=== PATIENT | female | born 1945 | race Caucasian/White ===

== ENCOUNTER 2022-01-28 15:36 | Outpatient (CLI) | payer MEDICARE, OTHER, SELFPAY ==
--- NOTE | 2022-01-28 15:47 | MM_ITS ---
WS: [id number] BILATERAL 3D TOMOSYNTHESIS DIGITAL SCREENING MAMMOGRAPHY WITH CAD CLINICAL INFORMATION: SCREEN HISTORY: Screening mammogram. No current complaints. COMPARISON: October 15, 2018 TECHNIQUE: Bilateral CC and MLO views. FINDINGS: The breasts are composed of heterogeneous fibroglandular density tissue, which can limit the detectio n of small underlying mass lesions. Vascular calcification. Punctate and lucent centered calcificatio ns. No suspicious mass, asymmetry, calcifications, or architectural distortion. No evidence of malign ying. MM/[place] [id number] IMPRESSION: BI-RADS: 2-Benign FOLLOW UP: 1 Year Follow-up Recommend return to annual screening mammography.
== END 2022-01-28 15:37 | disposition home or self-care (01) ==
LOC: RAD 15:44
PROVIDERS: PCP Electrodiagnostic Medicine; Visit Provider Electrodiagnostic Medicine
DX: Z12.31 Encounter for screening mammogram for malignant neoplasm of breast (principal)
CPT/HCPCS: 77063; 77067

== ENCOUNTER → 2022-02-20 00:01 | Outpatient (BNVA) | payer MEDICARE, OTHER, SELFPAY | PROVIDERS: PCP Electrodiagnostic Medicine; Visit Provider Clinical Nurse Specialist Adult Health | DX: I10 Essential (primary) hypertension (principal) | CPT/HCPCS: 80053; 80061; 85025 ==

== ENCOUNTER 2022-08-28 17:58 | Emergency (ER) | payer MEDICARE, OTHER, SELFPAY ==
[2022-08-28 18:03] VITALS: BP 145/65; PULSE 76; RESP 18; TEMP 37.2; O2SAT 95; BMI 25.7
--- NOTE | 2022-08-28 18:07 | ECG_ITS ---
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 Measurements Intervals [place] Rate: 81 P: 71 [place]: 224 QRS: 28 QRSD: 84 T: 61 QT: 398 QTc: 463 Interpretive Statements SINUS RHYTHM WITH SINUS ARRHYTHMIA WITH FIRST DEGREE AV BLOCK POSSIBLE LEFT ATRIAL ENLARGEMENT [-0.1mV P-WAVE IN V1/V2] NONSPECIFIC ST & T-WAVE ABNORMALITY No previous ECG available for comparison Electronically Signed On 08-29-2022 10:02:50 CUSTOM LEATH[employer]ODU[employer] MAKER by Shalini Ryder M.D. [id number]
--- NOTE | 2022-08-28 18:28 | XRR_ITS ---
PROCEDURE INFORMATION: Exam: XR Chest Exam date and time: 08/28/2022 6:46 PM Age: 77 years old Clinical indication: Other: Syncope TECHNIQUE: Imaging protocol: Radiologic exam of the chest. Views: 1 view. COMPARISON: No relevant prior studies available. FINDINGS: Lungs: Unremarkable. No consolidation. Pleural spaces: Unremarkable. No pleural effusion. No pneumothorax. Heart/Mediastinum: Unremarkable. No cardiomegaly. Bones/joints: Unremarkable. XR/XR chest 1V portable [id number] IMPRESSION: No acute findings.
--- NOTE | 2022-08-28 18:28 | CTR_ITS ---
PROCEDURE INFORMATION: Exam: CT Head Without Contrast Exam date and time: 08/28/2022 6:51 PM Age: 77 years old Clinical indication: Other: Occipital headache+syncope TECHNIQUE: Imaging protocol: Computed tomography of the head without contrast. Radiation optimization: All CT scans at this facility use at least one of these dose optimization techniques: automated exposure control; mA and/or kV adjustment per patient size (includes targeted exams where dose is matched to clinical indication); or iterative reconstruction. COMPARISON: No relevant prior studies available. RADIATION DOSE METRICS: Total DLP (mGy-cm): 1026.53 FINDINGS: Brain: No hemorrhage. No edema. Mild diffuse cerebral atrophy and sequela of chronic small vessel ischemic disease. No mass effect. Cerebral ventricles: No ventriculomegaly. Paranasal sinuses: Visualized sinuses are unremarkable. No fluid levels. Mastoid air cells: Visualized mastoid air cells are well aerated. Bones/joints: Unremarkable. No acute fracture. Soft tissues: Unremarkable. CT/CT head wo con* [id number] IMPRESSION: No acute intracranial abnormality.
--- NOTE | 2022-08-28 18:32 | W.ED.SYNCOPE ---
HPI - Syncope General: Chief Complaint: Syncope Stated Complaint: SYNCOPE Time Seen by Provider: 08/28/22 18:10 Source: patient and family Mode of arrival: EMS Limitations: no limitations History of Present Illness: You thought that might be related to blood pressure and took a hydralazine which she carries with her for blood pressure elevations. She states that shortly after taking that medication she apparently had a syncopal episode that was witnessed by bystanders. They state that she was had a loss of conscious for unknown period of time but eventually regained to her normal state of health. She denied any known or associated focal weakness or numbness or difficulty with speech. She denied headache. She denied any preceding activities to her neck pain to include heavy lifting twisting turning bending etc. She does not have a history of neck pain headaches etc. She does have a history of labile hypertension and therefore have it has the prescription for hydralazine. She now states that she feels back to her normal state of health. She states she ate and drank normally and otherwise had a normal day for her. She is non-smoker and does not use alcohol. She states she has occasional episodes of unsteadiness with rapid twisting and turning and movements that she is had for over 5 years has been evaluated by neurology and thought to be a peripheral cause per her history. She also states that she has peripheral neuropathy of uncertain etiology. She does not use alcohol in the as noted and she does not have a history of diabetes. MD complaint: loss of consciousness Associated symptoms: Deny abdominal pain, chest pain, fever(s), headache(s), lightheadedness, nausea or vertigo Review of Systems Const: Denies: fever(s) or chills Eyes: Denies: change in vision Card: Reports: syncope; Denies: chest pain, palpitations, irregular heart rhythm or lightheadedness Resp: Denies: dyspnea, productive cough or non-productive cough GI: Denies: abdominal pain, nausea or vomiting Musc: Reports: neck pain; Denies: back pain, extremity pain or extremity swelling Skin/Breast: Denies: rash Neuro: Denies: headache(s), weakness in extremities, dizziness, vertigo, confusion, Slurred speech present or seizure-like activity Psych: Denies: anxiety PFS ED PFSH: Medical History Hypercholesterolemia Hypertension Varicose veins of bilateral lower extremities with other complications Surgical History No history of previous surgery Family History Denies family history of Diabetes CAD (coronary artery disease) Dementia Chronic kidney disease (CKD) Cancer Stroke Social History Smoking and tobacco status: never smoked Alcohol intake: never Lives independently: Yes Household members: none Number of children: 3 Number of grandchildren: 8 Physical Exam Narrative: EXAM NARRATIVE: Speaks inAt coming comfortable, cooperative; speaks in normal voice and goal-directed sentences. Const: COMMON NORMALS: no acute distress, average body habitus and patient oriented x3 GENERAL APPEARANCE: cooperative and comfortable ORIENTATION/CONSCIOUSNESS: Yes awake HENMT: COMMON NORMALS: normocephalic, Normal nasal mucous membranes and turbinates present and moist oral mucous membranes HEAD & SCALP: normocephalic FACE & SINUS: normal facial exam and face symmetric NOSE: Normal nasal mucous membranes and turbinates present Eye: COMMON NORMALS: Equal, round and reactive pupils present, EOMs intact bilaterally and conjunctivae normal CONJUNCTIVA: Yes conjunctivae normal PUPIL: Yes Equal, round and reactive pupils present Neck/C-Spine: COMMON NORMALS: full ROM, no lymphadenopathy, supple, no JVD and No carotid bruits Chest: COMMONS NORMALS: normal inspection of the chest Resp: COMMON NORMALS: normal respiratory effort, No retractions, No use of accessory muscles and clear to auscultation bilaterally EFFORT & INSPECTION: Yes able to speak in complete sentences AUSCULTATION: clear to auscultation bilaterally Cardio: COMMON NORMALS: no JVD, regular rate, regular rhythm, No murmurs present (Cardio) and Peripheral pulses 2+ throughout RATE: regular rate RHYTHM: regular rhythm PERIPHERAL PULSES: Peripheral pulses 2+ throughout : COMMON NORMALS: Yes no CVA tenderness BLADDER/KIDNEY EXAM: Yes no CVA tenderness Back/Pelvis: COMMON NORMALS: no CVA tenderness, thoracic and lumbar spine normal to inspection, no thoracic nor lumbar tenderness, thoraco-lumbar ROM normal and straight leg raise negative bilaterally Extremity: COMMON NORMALS: normal to inspection, full ROM, no clubbing, cyanosis or edema, no calf tenderness and no pedal edema Neuro: COMMON NORMALS: patient oriented x3 CRANIAL NERVES: Yes CN normal except as noted COORDINATION/BALANCE: qpradm-cz-maeg test normal (She has a little bit of difficulty with guudoq-dh-yjeh with the right upper) and rdkc-pl-nhdp test normal SPEECH: speech normal MOTOR EXAM: 5/5 motor strength present throughout and Pronator motor function not present COORDINATION: zpypqi-ma-mocp test normal (She has a little bit of difficulty with klosfx-tt-ltgt with the right upper) and syxl-vi-jpjt test normal Psych: COMMON NORMALS: mental status grossly normal Skin: COMMON NORMALS: no rashes or lesions noted and turgor normal GENERAL SKIN EXAM: no rashes or lesions noted and turgor normal Course Reevaluation(s): Reevaluation #1: Patient was reexamined. She states she feels fine. She is eaten a small snack. She says she still has a little bit of discomfort in right posterior neck but otherwise no pain or discomfort. Repeat neurologic examination revealed no issues with right upper extremity with coordination wqwcin-um-klch etc. No other focal findings at this time although she does have to use a bit more than expected effort to elevate her left leg against gravity. We will proceed with a CTA of the head and neck to ensure that there is no occult vascular abnormality. Her noncontrast CT of her head is negative for any evidence of intracranial hemorrhage. Time: 20:03 Reevaluation #2: Results of CTA head and neck were reviewed with the patient and family. Consultation was engaged with neurosurgery at [facility]. Patient remains clinically stable without any new or focal findings. Blood pressures in the normotensive range and no other focal neurologic symptoms or findings. Discussed follow-up with vascular surgery at [facility] as well as the need for avoiding use of hydralazine given his unpredictable nature. Recommend calling her primary care doctor tomorrow to arrange a appointment to review her regimen and determine more optimal therapy for maintaining her in a normotensive state. Time: 22:19 Consultations: Consultation #1: Discussed with -neurosurgeon at [facility]. We reviewed her current presentation as well as the CTA results. Based upon information presented to him he did not feel that any acute intervention for this size of an aneurysm at this stage in life was indicated given there was no active bleeding etc. He did recommend periodic follow-up with vascular and made a referral to one of his vascular surgeons at [facility]. Time: 22:20 Vital Signs: Vital signs: Vital Signs Temperature 98.9 F 08/28/22 18:03 Pulse Rate 76 08/28/22 18:03 Respiratory Rate 18 08/28/22 18:03 Blood Pressure 155/77 08/28/22 18:37 Pulse Oximetry 95 08/28/22 18:37 Oxygen Delivery Me thod 08/28/22 18:37 MDM - Syncope Medical Decision Making This patient made her way by EMS to the emergency department because of an episode of neck pain while at rest followed by concerns about potential blood pressure elevation for which she took hydralazine. Shortly after she took hydralazine she had a syncopal episode without any significant injury. Apparently had a history of labile hypertension and was prescribed hydralazine to use on a as needed basis in the past. Her initial examination was nonfocal however because of some of her associated symptoms prior to her syncopal episode a noncontrasted CT was obtained to ensure that there is no evidence of acute intracranial hemorrhage etc. This was negative and given her short duration of presentation after symptoms was very predictive of low likelihood of occult intracranial hemorrhage. Additional studies were then obtained to ensure that no there was no evidence of vascular issues at play because of her neck pain which preceded her presentation. A CT was obtained which showed a unruptured 4 mm aneurysm. Consultation was undertaken with neurosurgery who recommended periodic follow-up and that no acute intervention was necessary. She repaint remained in a stable condition while in the emergency department with no fluctuations in blood pressure and no focal findings on repeat examinations. Still unclear as to the etiology of her neck pain but certainly does not suggest any ongoing emergency medical condition at this time. We discussed the importance of maintaining normotensive state and that she needs to get with her primary care doctor regarding her review of regimen and eliminating hydralazine is probably a episodic drug. This was all discussed with patient as well as in the presence of family. She voiced understanding and acknowledged our discussion. She was appreciative of care and stable for discharge. Lab Data I reviewed the patient's lab results. 08/28/22 17:50 08/28/22 17:50 Radiology Impressions Chest X-Ray 08/28/22 18:28 IMPRESSION: No acute findings. Head CT 08/28/22 18:28 IMPRESSION: No acute intracranial abnormality. Head/Neck CTA 08/28/22 20:02 IMPRESSION: 1. No large vessel stenosis or occlusion. 2. There is a 4 mm aneurysm which appears to originate off of a distal arterial branch of the right anterior inferior cerebellar artery located adjacent to the cerebellar vermis. IMPRESSION: No stenosis or occlusion. REFERENCES: NASCET CRITERIA. The degree of stenosis in the cervical segment of the internal carotid artery is based on NASCET criteria. Normal is no stenosis. Mild is less than 50% stenosis. Moderate is 50-69% stenosis. Severe is 70% to 99% stenosis. Total occlusion is no detectable patent lumen. Laboratory Results WBC 8.2 10^3/uL (4.0-10.0) 08/28/22 17:50 RBC 4.61 10^6/uL (4.1-5.3) 08/28/22 17:50 Hgb 14.0 g/dL (11.5-15.3) 08/28/22 17:50 Hct 42.3 % (37.0-47.0) 08/28/22 17:50 MCV 91.8 fl (81-99) 08/28/22 17:50 MCH 30.4 pg (28.0-34.0) 08/28/22 17:50 MCHC 33.1 g/dL (30.0-36.0) 08/28/22 17:50 RDW 12.9 % (12.1-15.1) 08/28/22 17:50 Plt Count 303 10^3/cmm (130-400) 08/28/22 17:50 MPV 10.2 fL (7.4-10.4) 08/28/22 17:50 Neut % (Auto) 55.2 % 08/28/22 17:50 Lymph % (Auto) 31.8 % 08/28/22 17:50 [place] % (Auto) 10.4 % 08/28/22 17:50 Eos % (Auto) 1.7 % 08/28/22 17:50 Baso % (Auto) 0.7 % 08/28/22 17:50 Neut # (Auto) 4.50 10^3/uL (1.8-7.7) 08/28/22 17:50 Lymph # (Auto) 2.6 10^3/uL (0.8-4.8) 08/28/22 17:50 [place] # (Auto) 0.9 10^3/uL (0.2-0.9) 08/28/22 17:50 Eos # (Auto) 0.1 10^3/uL (0.0-0.8) 08/28/22 17:50 Baso # (Auto) 0.1 10^3/uL (0.0-0.1) 08/28/22 17:50 Nucleated RBC % (auto) 0 % 08/28/22 17:50 Nucleated RBCs # 0.0 /100WBC 08/28/22 17:50 Sodium 135 mmol/L (136-145) L 08/28/22 17:50 Potassium 3.6 mmol/L (3.5-5.1) 08/28/22 17:50 Chloride 95 mmol/L (98-107) L 08/28/22 17:50 Carbon Dioxide 28 mmol/L (22-29) 08/28/22 17:50 Anion Gap 15.6 (5-19) 08/28/22 17:50 BUN 16 mg/dL (8-23) 08/28/22 17:50 Creatinine 0.9 mg/dL (0.5-0.9) 08/28/22 17:50 GFR Calculation Not Reportable 08/28/22 17:50 Glucose 130 mg/dL (65-115) H 08/28/22 17:50 Calculated Osmolality 283 mOsm/kg (285-295) L 08/28/22 17:50 Calcium 9.8 mg/dL (8.5-10.5) 08/28/22 17:50 Total Bilirubin 0.3 mg/dL (0.15-1.2) 08/28/22 17:50 AST 24 U/L (0-32) 08/28/22 17:50 ALT 19 U/L (0-33) 08/28/22 17:50 Alkaline Phosphatase 58 U/L (35-105) 08/28/22 17:50 Troponin T Baseline 10 ng/L (0-10) 08/28/22 17:50 Troponin T 120 Minute 7.89 ng/L (0-10) 08/28/22 19:53 Total Protein 7.6 g/dL (6.6-8.7) 08/28/22 17:50 Albumin 4.5 g/dL (3.5-5.2) 08/28/22 17:50 Globulin 3.1 g/dL (1.3-4.6) 08/28/22 17:50 EKG Data EKG 1: I personally reviewed and interpreted this EKG as follows: Interpretation: Contemporaneous review of resting EKG reveals a ventricular rate of 81 bpm. Prolonged WV interval suggestive of first-degree AV block. QRS duration is normal. Corrected QT intervals normal. Normal axis. No acute ST-T wave changes noted. Discharge Plan Discharge Patient Disposition: Home Clinical Impression: Labile hypertension, Intracranial aneurysm, Syncope Condition: Stable Prescriptions: Held hydralazine 50 mg tablet 50 mg PO ONCE Hold Instructions: Resume on 09/10/22. pending review by pcp No Action hydrochlorothiazide 25 mg tablet 25 mg PO DAILY metoprolol succinate 100 mg capsule,sprinkle,ER 24hr 100 mg PO DAILY atorvastatin 20 mg tablet PO montelukast 10 mg tablet PO Discharge Orders: Discharge ED (Routine); Ordered 08/28/22 Ordered By: Amauri Antonio Referrals: Megan Pina MD [Primary Care Provider] - 1 week Discharge Diet: Low Salt Discharge Activity: Increase activity as tolerated Patient Instructions: Opioid Safety, Pain Management Activity Restrictions/Additional Instructions: Case management will be speaking with Dr. Fonseca the vascular surgeon at [facility] to arrange follow-up. Call your primary care doctor tomorrow to arrange follow-up and review of your blood pressure control. If you develop any new, persistent or worsening symptoms or recurrence of the same symptoms you experienced today return to this or the nearest emergency department immediately. Coding Level of Care Code ED Mica Laminating Machine Feeder for Chg Fwd Exam Comprehensive
[2022-08-28 18:37] VITALS: BP 155/77; O2SAT 95
[2022-08-28] MEDS: sodium chloride 0.9% 500 ML IV (18:40)
[2022-08-28 18:56] LABS: Basophils # 0.1 10^3/uL (0.0-0.1); Basophils % 0.7 %; Eosinophils # 0.1 10^3/uL (0.0-0.8); Eosinophils % 1.7 %; Hematocrit 42.3 % (37.0-47.0); Lymphocytes # 2.6 10^3/uL (0.8-4.8); Lymphocytes % 31.8 %; Mean Corpuscular HGB Conc 33.1 g/dL (30.0-36.0); Mean Corpuscular Hemoglobin 30.4 pg (28.0-34.0); Mean Corpuscular Volume 91.8 fl (81-99); Mean Platelet Volume 10.2 fL (7.4-10.4); Monocytes # 0.9 10^3/uL (0.2-0.9); Monocytes % 10.4 %; Neutrophils % 55.2 %; Nucleated Red Blood Cells % 0 %; Platelet Count 303 10^3/cmm (130-400); Red Blood Count 4.61 10^6/uL (4.1-5.3); Red Cell Distribution Width 12.9 % (12.1-15.1); White Blood Count 8.2 10^3/uL (4.0-10.0)
[2022-08-28 19:20] LABS: Troponin(5th) Baseline 10 ng/L (0-10)
[2022-08-28 19:23] LABS: Alanine Aminotransferase 19 U/L (0-33); Albumin Level 4.5 g/dL (3.5-5.2); Alkaline Phosphatase 58 U/L (35-105); Anion Gap 15.6 (5-19); Aspartate Amino Transferase 24 U/L (0-32); Blood Urea Nitrogen 16 mg/dL (8-23); Calcium 9.8 mg/dL (8.5-10.5); Carbon Dioxide 28 mmol/L (22-29); Chloride 95 mmol/L (98-107); Globulin 3.1 g/dL (1.3-4.6); Glucose 130 mg/dL (65-115); Osmolality Calculated 283 mOsm/kg (285-295); Potassium 3.6 mmol/L (3.5-5.1); Sodium 135 mmol/L (136-145); Total Bilirubin 0.3 mg/dL (0.15-1.2); Total Protein 7.6 g/dL (6.6-8.7)
--- NOTE | 2022-08-28 20:02 | CTR_ITS ---
PROCEDURE INFORMATION: Exam: CTA Head With Contrast, Arteriography Exam date and time: 08/28/2022 8:23 PM Age: 77 years old Clinical indication: Other: Neck pain; Additional info: Neck pain and syncope TECHNIQUE: Imaging protocol: Computed tomographic angiography of the head with contrast. Exam focused on the arteries. 3D rendering (Not supervised by radiologist): MIP and/or 3D reconstructed images were created by the technologist. Radiation optimization: All CT scans at this facility use at least one of these dose optimization techniques: automated exposure control; mA and/or kV adjustment per patient size (includes targeted exams where dose is matched to clinical indication); or iterative reconstruction. Contrast material: OMNI 350; Contrast volume: 100 ml; Contrast route: INTRAVENOUS (IV); COMPARISON: CT head wo con* [id number] 08/28/2022 6:51 PM RADIATION DOSE METRICS: Total DLP (mGy-cm): 383.97 FINDINGS: ANTERIOR CIRCULATION: Right internal carotid artery: Intracranial segment is patent with no significant stenosis. No aneurysm. Right middle cerebral artery: No occlusion or significant stenosis. No aneurysm. Right anterior cerebral artery: No occlusion or significant stenosis. No aneurysm. Left internal carotid artery: Intracranial segment is patent with no significant stenosis. No aneurysm. Left middle cerebral artery: No occlusion or significant stenosis. No aneurysm. Left anterior cerebral artery: No occlusion or significant stenosis. No aneurysm. POSTERIOR CIRCULATION: Right vertebral artery: No occlusion or significant stenosis. No aneurysm. Left vertebral artery: No occlusion or significant stenosis. No aneurysm. Basilar artery: No occlusion or significant stenosis. No aneurysm. Right posterior cerebral artery: No occlusion or significant stenosis. No aneurysm. Left posterior cerebral artery: No occlusion or significant stenosis. No aneurysm. Brain: No definite mass, mass effect, or midline shift. Cerebral ventricles: No ventriculomegaly. Bones/joints: Unremarkable. No acute fracture. Soft tissues: Unremarkable. Other findings: There is a 4 mm aneurysm which appears to originate off of a distal arterial branch of the right anterior inferior cerebellar artery located adjacent to the cerebellar vermis series 4, image 220 and series 17, image 43. PROCEDURE INFORMATION: Exam: CTA Neck With Contrast Exam date and time: 08/28/2022 8:23 PM Age: 77 years old Clinical indication: Other: Neck pain; Additional info: Neck pain and syncope TECHNIQUE: Imaging protocol: Computed tomographic angiography of the neck with contrast. 3D rendering (Not supervised by radiologist): MIP and/or 3D reconstructed images were created by the technologist. Radiation optimization: All CT scans at this facility use at least one of these dose optimization techniques: automated exposure control; mA and/or kV adjustment per patient size (includes targeted exams where dose is matched to clinical indication); or iterative reconstruction. Contrast material: OMNI 350; Contrast volume: 100 ml; Contrast route: INTRAVENOUS (IV); COMPARISON: CT head wo [facility]* [id number] 08/28/2022 6:51 PM RADIATION DOSE METRICS: Total DLP (mGy-cm): 383.97 FINDINGS: Right common carotid artery: No stenosis. No dissection or occlusion. Right internal carotid artery: No stenosis of the extracranial segment. No dissection or occlusion. Right external carotid artery: No occlusion or stenosis of the origin. Left common carotid artery: No stenosis. No dissection or occlusion. Left internal carotid artery: No stenosis of the extracranial segment. No dissection or occlusion. Left external carotid artery: No occlusion or stenosis of the origin. Right vertebral artery: No stenosis. No dissection or occlusion. Left vertebral artery: No stenosis. No dissection or occlusion. Soft tissues: Normal. No significant soft tissue swelling. Bones/joints: No acute fracture. CT/CT angio headneck* [id number] IMPRESSION: 1. No large vessel stenosis or occlusion. 2. There is a 4 mm aneurysm which appears to originate off of a distal arterial branch of the right anterior inferior cerebellar artery located adjacent to the cerebellar vermis. IMPRESSION: No stenosis or occlusion. REFERENCES: NASCET CRITERIA. The degree of stenosis in the cervical segment of the internal carotid artery is based on NASCET criteria. Normal is no stenosis. Mild is less than 50% stenosis. Moderate is 50-69% stenosis. Severe is 70% to 99% stenosis. Total occlusion is no detectable patent lumen.
[2022-08-28 20:21] LABS: Troponin 5 2HR 7.89 ng/L (0-10)
[2022-08-28] MEDS: iohexol 350 mg/mL 500 mL Btl (per mL) IV (20:28)
--- NOTE | 2022-08-28 20:39 | ECG_ITS ---
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 Measurements Intervals [place] Rate: 85 P: 68 CO: 232 QRS: 21 QRSD: 81 T: 27 QT: 382 QTc: 456 Interpretive Statements SINUS RHYTHM WITH FIRST DEGREE AV BLOCK POSSIBLE LEFT ATRIAL ENLARGEMENT [-0.1mV P-WAVE IN V1/V2] ST DEVIATION AND MODERATE T-WAVE ABNORMALITY, CONSIDER INFERIOR ISCHEMIA [-0.1+ mV T-WAVE IN II/aVF] Compared to ECG 08/28/2022 18:16:09 Possible ischemia now present Sinus arrhythmia no longer present T-wave abnormality still present Electronically Signed On 08-29-2022 10:08:46 DESIGNER ARCHITECT by Shalini Ryder M.D. [email or web address]..[email or web address]/store/[id number]
[2022-08-28 23:06] VITALS: BP 178/83; PULSE 86; RESP 15; O2SAT 96
[2022-08-28 23:30] LABS: Troponin 5 2HR Delta -2.11 ABS# (0-10)
--- NOTE | 2022-08-29 11:49 | DCPLANNER ---
Addendum entered by Bisi Bruno 09/11/22 14:24: relations manager called to confirm that clinic received patients information for review. relations manager was told that clinic did receive patients information, it will be reviewed, and clinic will call patient with appointment information. Addendum entered by Bisi Bruno 09/11/22 12:25: [facility] called onsite case manager and stated that patient needed neuro surgery not vascular surgery. relations manager faxed referral to neuro surgery. Patients information will be reviewed, clinic will call patient with appointment information. phone number is [phone] fax number is [phone] Addendum entered by Bisi Bruno 08/30/22 09:20: relations manager called [facility] to confirm that clinic received patients information. Case manger was told that clinic did received patients information. Original Note: relations manager had message to schedule a follow up appointment for patient with Dr. Rosalinda carlson at [facility]. Phone number for clinic is [phone] and the fax number for the clinic is [phone]. Patients information will be reviewed, clinic will call patient with appointment information.
== END 2022-08-28 23:07 | disposition home or self-care (01) ==
PROVIDERS: Emergency Provider Emergency Medicine; PCP Family Medicine
DX: R55 Syncope and collapse (principal); I10 Essential (primary) hypertension; I67.1 Cerebral aneurysm, nonruptured
CPT/HCPCS: 70450; 70496; 70498; 71045; 80053; 84484; 85025; 93005; 96360; 96361; 99285; J7040; Q9967

== ENCOUNTER → 2022-10-15 13:25 | Outpatient (BNVA) | payer MEDICARE, OTHER, SELFPAY | PROVIDERS: PCP Family Medicine; Visit Provider Family Medicine | DX: I10 Essential (primary) hypertension (principal); Z85.828 Personal history of other malignant neoplasm of skin; L98.9 Disorder of the skin and subcutaneous tissue, unspecified; I67.1 Cerebral aneurysm, nonruptured | CPT/HCPCS: 80048 ==

== ENCOUNTER 2023-03-20 09:32 | Outpatient (CLI) | payer MEDICARE, OTHER, SELFPAY ==
--- NOTE | 2023-03-20 09:43 | MM_ITS ---
WS: [id number] BILATERAL SCREENING DIGITAL TOMOSYNTHESIS MAMMOGRAM WITH CAD HISTORY: SCREENING COMPARISON: 01/28/2022 and 10/15/2018 Bilateral CC and MLO views with tomosynthesis and synthetic mammography submitted. Computer aided det ection analyzed. Breast composition: The breasts are heterogeneously dense, which may obscure small masses. No suspici ous masses, microcalcifications or architectural distortion. Heavy arterial calcifications within eac h breast. IMPRESSION: MM/[place] [id number] BI-RADS: 2-Benign FOLLOW UP: 1 Year Follow-up
== END 2023-03-20 09:33 | disposition home or self-care (01) ==
PROVIDERS: PCP Family Medicine; Visit Provider Family Medicine
DX: Z12.31 Encounter for screening mammogram for malignant neoplasm of breast (principal)
CPT/HCPCS: 77063; 77067

== ENCOUNTER 2023-09-02 08:46 | Outpatient (CLI) | payer MEDICARE, OTHER, SELFPAY ==
--- NOTE | 2023-09-02 08:50 | CT_ITS ---
WS: [id number] CTA HEAD TECHNIQUE: Contrast enhanced CTA of the head with coronal and sagittal reformatted images and maximum intensity projection (MIP) images. NASCET criteria utilized. CLINICAL INFORMATION: INTRACRANIAL ANEURYSM COMPARISON: CTA 08/28/2022 DLP: 1476.[address] scans at [facility] use at least one of these dose optimization techniques: automated e xposure control; mA and/or kV adjustment per patient size (includes targeted exams where dose is matc hed to clinical indication); or iterative reconstruction. FINDINGS: Noncontrast head CT demonstrates moderate small vessel changes with mild parenchymal volume loss. Cavernous carotid calcification. Mastoid air cells are well aerated. Paranasal sinuses are wel l aerated. Normal posterior nasopharynx. INTRACRANIAL CTA: Distal vertebral arteries are patent. Basilar artery is patent. Normal vascularity to the BATCH MIXER territo ry bilaterally. Robust RIGHT posterior communicating artery. Persistent LEFT BATCH MIXER supplies the L EFT BATCH MIXER territory. Distal vessels are patent. Both ICAs are patent at the skull base. Mild cavernous carotid calcification. Patent anterior communi cating artery. Normal vascularity to the ADIEL territory. Normal vascularity to the MCA territories [place] aterally. No evidence of flow-limiting stenosis. IMPRESSION: 1. 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 This appears to origina te from a distal AICA branch. 2. Persistent LEFT BATCH MIXER. 3. No other significant changes.
[2023-09-02 09:19] LABS: Blood Urea Nitrogen 13 mg/dL (8-23)
[2023-09-02] MEDS: iohexol 350 mg/mL 500 mL Btl (per mL) IV (09:30)
== END 2023-09-02 08:47 | disposition home or self-care (01) ==
LOC: RAD 08:46
PROVIDERS: Radiology Diagnostic Radiology; PCP Family Medicine; Visit Provider Neurological Surgery
DX: I67.1 Cerebral aneurysm, nonruptured (principal)
CPT/HCPCS: 70496; 82565; 84520; Q9967

== ENCOUNTER → 2023-11-12 09:33 | Outpatient (BNVA) | payer MEDICARE, OTHER, SELFPAY | PROVIDERS: PCP Family Medicine; Visit Provider Nurse Practitioner Family | DX: L82.0 Inflamed seborrheic keratosis (principal); D48.5 Neoplasm of uncertain behavior of skin; L82.1 Other seborrheic keratosis; L57.0 Actinic keratosis; D22.5 Melanocytic nevi of trunk | CPT/HCPCS: 11102; 17000; 17110; 99213 ==

== ENCOUNTER → 2024-03-10 08:54 | Outpatient (BNVA) | payer MEDICARE, OTHER, SELFPAY | PROVIDERS: PCP Family Medicine; Visit Provider Family Medicine | DX: I10 Essential (primary) hypertension (principal); E78.00 Pure hypercholesterolemia, unspecified | CPT/HCPCS: 80053; 80061 ==

== ENCOUNTER → 2024-03-25 08:15 | Outpatient (BNVA) | payer MEDICARE, OTHER, SELFPAY | PROVIDERS: PCP Family Medicine; Visit Provider Nurse Practitioner Family | DX: L82.1 Other seborrheic keratosis (principal); L57.0 Actinic keratosis; L81.4 Other melanin hyperpigmentation; D22.5 Melanocytic nevi of trunk; L85.3 Xerosis cutis; L57.8 Other skin changes due to chronic exposure to nonionizing radiation | CPT/HCPCS: 17000; 99213 ==

== ENCOUNTER 2024-05-27 10:17 | Outpatient (CLI) | payer MEDICARE, OTHER, SELFPAY ==
--- NOTE | 2024-05-27 10:22 | MM_ITS ---
WS: [id number] BILATERAL SCREENING DIGITAL TOMOSYNTHESIS MAMMOGRAM WITH CAD HISTORY: SCREENING COMPARISON: 03/20/2023, 01/28/2022, 02/29/2016 Bilateral CC and MLO views with tomosynthesis and synthetic mammography submitted. Computer aided det ection analyzed. Breast composition: The breasts are heterogeneously dense, which may obscure small masses. No suspici ous masses, microcalcifications or architectural distortion. Dense heavy arterial calcifications with in each breast. MM/MM scr BI tomosynthesis [id number] IMPRESSION: BI-RADS: 2 - Benign FOLLOW UP: 1 Year Follow-up
== END 2024-05-27 10:18 | disposition home or self-care (01) ==
LOC: RAD 10:18
PROVIDERS: PCP Family Medicine; Visit Provider Family Medicine
DX: Z12.31 Encounter for screening mammogram for malignant neoplasm of breast (principal); R92.333 Mammographic heterogeneous density, bilateral breasts; R92.1 Mammographic calcification found on diagnostic imaging of breast
CPT/HCPCS: 77063; 77067

== ENCOUNTER → 2024-09-13 08:39 | Outpatient (BNVA) | payer MEDICARE, OTHER, SELFPAY | PROVIDERS: PCP Family Medicine; Visit Provider Family Medicine | DX: I10 Essential (primary) hypertension (principal); E78.5 Hyperlipidemia, unspecified | CPT/HCPCS: 80053; 80061 ==

== ENCOUNTER 2024-11-03 17:59 | Emergency (ER) | payer MEDICARE, OTHER, SELFPAY ==
[2024-11-03 18:06] VITALS: BP 208/99; PULSE 69; RESP 15; TEMP 36.9; O2SAT 94; BMI 26.5
--- NOTE | 2024-11-03 18:06 | XRR_ITS ---
PROCEDURE INFORMATION: Exam: XR Chest Exam date and time: 11/03/2024 6:28 PM Age: 79 years old Clinical indication: Shortness of breath and other: Syncope TECHNIQUE: Imaging protocol: Radiologic exam of the chest. Views: 1 view. COMPARISON: CR XR chest 1V portable [id number] 08/28/2022 6:46 PM FINDINGS: Lungs: Unremarkable. No consolidation. Pleural spaces: Unremarkable. No pleural effusion. No pneumothorax. Heart/Mediastinum: Unremarkable. No cardiomegaly. Bones/joints: Unremarkable. XR/XR chest 1V portable [id number] IMPRESSION: No acute findings.
--- NOTE | 2024-11-03 18:06 | CTR_ITS ---
PROCEDURE INFORMATION: Exam: CT Head Without Contrast Exam date and time: 11/03/2024 6:59 PM Age: 79 years old Clinical indication: Syncope and collapse TECHNIQUE: Imaging protocol: Computed tomography of the head without contrast. Radiation optimization: All CT scans at this facility use at least one of these dose optimization techniques: automated exposure control; mA and/or kV adjustment per patient size (includes targeted exams where dose is matched to clinical indication); or iterative reconstruction. Other technique: STROKE PROTOCOL was implemented. COMPARISON: CT angio head [id number] 09/02/2023 9:21 AM RADIATION DOSE METRICS: Total DLP (mGy-cm): 1035.11 FINDINGS: Brain: No hemorrhage. No edema. Mild diffuse cerebral atrophy and sequela of chronic small vessel ischemic disease. No mass effect. Cerebral ventricles: No ventriculomegaly. Paranasal sinuses: Visualized sinuses are unremarkable. No fluid levels. Mastoid air cells: Visualized mastoid air cells are well aerated. Bones: Unremarkable. No acute fracture. Soft tissues: Unremarkable. CT/CT head wo con* [id number] IMPRESSION: No acute intracranial abnormality. ASSESSMENT: ASPECTS ([place] Stroke Program Early CT Score) is 10.
--- NOTE | 2024-11-03 18:07 | ECG_ITS ---
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 Measurements Intervals [place] Rate: 67 P: 62 WI: 207 QRS: 1 QRSD: 94 T: 29 QT: 416 QTc: 441 Interpretive Statements SINUS RHYTHM Compared to ECG 08/28/2022 20:57:03 First degree AV block no longer present T-wave abnormality no longer present Possible ischemia no longer present Electronically Signed On 11-03-2024 19:24:49 CDT by Reynaldo Hoffman M.D. [email or web address] [id number]
--- NOTE | 2024-11-03 18:10 | ED_ITS ---
HPI - Altered Mental Status 2 General: Chief Complaint: Altered Mental Status Stated Complaint: AMS Time Seen by Provider: 11/03/24 18:04 Source: patient and EMS Mode of arrival: EMS Limitations: no limitations History of Present Illness: 79-year-old female was at [employer] today s he is serving on her feet and had a witnessed syncopal event. Patient stared off and then almost fell but was caught. Patient does not remember the events she denies any headache denies any chest pain before or after immediately after blood pressure was low she is now hypertensive and has a history of hypertension states she feels much improved has no symptoms at this time Related Data Previous Rx's ?Medication ?Instructions ?Recorded atorvastatin 20 mg tablet 20 mg PO DAILY #90 tabs 11/01 hydralazine 50 mg tablet 50 mg PO BID #180 tabs 09/13 metoprolol succinate 100 mg See Rx Instructions .Route 09/13/24 tablet,extended release 24 hr .COMPLEX #90 tabs hydrochlorothiazide 25 mg tablet See Rx Instructions . 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 of the right anterior inferior cerebellar artery located adjacent to the cerebellar vermis Hypercholesterolemia Hypertension Varicose veins of bilateral lower extremities with other complications Surgical History No history of previous surgery Family History Denies family history of Diabetes CAD (coronary artery disease) Dementia Chronic kidney disease (CKD) Cancer Stroke Social History Smoking and tobacco/nicotine status: never used tobacco/nicotine Alcohol intake: never Substance/Drug Use: never Lives independently: Yes Household members: none Number of children: 3 Number of grandchildren: 8 Physical Exam 2 Const: COMMON NORMALS: no acute distress, patient oriented x3 and healthy appearing HENMT: COMMON NORMALS: normocephalic and atraumatic HEAD & SCALP: n ormocephalic and atraumatic Eye: COMMON NORMALS: Equal, round and reactive pupils present and EOMs intact bilaterally PUPIL: Yes Equal, round and reactive pupils present Neck/C-Spine: COMMON NORMALS: full ROM and supple Chest: COMMONS NORMALS: normal inspection of the chest Resp: COMMON NORMALS: normal respiratory effort, No retractions, No use of accessory muscles and clear to auscultation bilaterally AUSCULTATION: clear to auscultation bilaterally Cardio: COMMON NORMALS: regular rate, regular rhythm and No murmurs present (Cardio) RATE: regular rate RHYTHM: regular rhythm GI: COMMON NORMALS: Normal to inspection, nondistended, normoactive bowel sounds present, Soft to palpation, non-tender and no masses PALPATION: Yes Soft to palpation Extremity: COMMON NORMALS: normal to inspection and full ROM Neuro: COMMON NORMALS: patient oriented x3, moves all extremities and no focal motor deficits Psych: COMMON NORMALS: mental status grossly normal, Normal thought process present and cooperative THOUGHT PROCESS: Normal thought process present Skin: COMMON NORMALS: no rashes or lesions noted and no wounds GENERAL SKIN EXAM: no rashes or lesions noted Course 2 Vital Signs: Vital signs: Vital Signs Temperature 98.4 F 11/03/24 18:06 Pulse Rate 84 11/03/24 19:36 Respiratory Rate 18 11/03/24 19:36 Blood Pressure 183/96 11/03/24 19:36 Pulse Oximetry 98 11/03/24 19:36 Oxygen Delivery Me thod Room Air 11/03/24 18:15 MDM - Altered Mental Status Medical Decision Making Patient presents after a syncopal event is likely vagal in nature she has been well-appearing here imaging blood works all normal she had no signs of stroke no chest pain she stable for discharge follow-up with PCP return if worsening. Medical Records I reviewed the patient's medical records. Lab Data I reviewed the patient's lab results. 11/03/24 18:13 11/03/24 18:13 Radiology Impressions Chest X-Ray 11/03/24 18:06 IMPRESSION: No acute findings. Head CT 11/03/24 18:06 IMPRESSION: No acute intracranial abnormality. ASSESSMENT: ASPECTS ([place] Stroke Program Early CT Score) is 10. ADDENDUM: 11/03/24 192 Findings were discussed with TREMAYNE CHILDRESS at 11/03/2024 7:19 PM CDT. Laboratory Results WBC 6.51 10^3/uL (3.29-11.43) 11/03/24 18:13 RBC 4.38 10^6/uL (3.85-5.65) 11/03/24 18:13 Hgb 13.20 g/dL (11.27-16.99) 11/03/24 18:13 Hct 40.1 % (36-47) 11/03/24 18:13 MCV 91.6 fl (85-98) 11/03/24 18:13 MCH 30.1 pg (27-33) 11/03/24 18:13 MCHC 32.9 g/dL (30-55) 11/03/24 18:13 RDW 13.5 % (12.1-15.1) 11/03/24 18:13 Plt Count 268 10^3/cmm (157-399) 11/03/24 18:13 MPV 9.1 fL (7.4-10.4) 11/03/24 18:13 Neut % (Auto) 53.4 % 11/03/24 18:13 Lymph % (Auto) 30.3 % 11/03/24 18:13 Teller % (Auto) 12.0 % 11/03/24 18:13 Eos % (Auto) 3.5 % 11/03/24 18:13 Baso % (Auto) 0.6 % 11/03/24 18:13 Neut # (Auto) 3.48 10^3/uL (1.8-7.7) 11/03/24 18:13 Lymph # (Auto) 2.0 10^3/uL (0.8-4.8) 11/03/24 18:13 Teller # (Auto) 0.8 10^3/uL (0.2-0.9) 11/03/24 18:13 Eos # (Auto) 0.2 10^3/uL (0.0-0.8) 11/03/24 18:13 Baso # (Auto) 0.0 10^3/uL (0.0-0.1) 11/03/24 18:13 Nucleated RBC % (auto) 0 % 11/03/24 18:13 Nucleated RBCs # 0.0 /100WBC 11/03/24 18:13 PT 12.60 SECONDS (12.1-14.9) 11/03/24 18:13 INR 0.88 (0.8-1.2) 11/03/24 18:13 Sodium 132 mmol/L (136-145) L 11/03/24 18:13 Potassium 3.4 mmol/L (3.5-5.1) L 11/03/24 18:13 Chloride 94 mmol/L (98-107) L 11/03/24 18:13 Carbon Dioxide 24 mmol/L (22-29) 11/03/24 18:13 Anion Gap 17.4 (5-19) 11/03/24 18:13 BUN 12 mg/dL (8-23) 11/03/24 18:13 Creatinine 0.7 mg/dL (0.5-0.9) 11/03/24 18:13 GFR Calculation Not Reportable 11/03/24 18:13 Glucose 121 mg/dL (65-115) H 11/03/24 18:13 Calculated Osmolality 275 mOsm/kg (285-295) L 11/03/24 18:13 Calcium 9.0 mg/dL (8.5-10.5) 11/03/24 18:13 Total Bilirubin 0.2 mg/dL (0.15-1.2) 11/03/24 18:13 AST 23 U/L (0-32) 11/03/24 18:13 ALT 17 U/L (0-33) 11/03/24 18:13 Alkaline Phosphatase 57 U/L (35-105) 11/03/24 18:13 Total Protein 6.9 g/dL (6.6-8.7) 11/03/24 18:13 Albumin 4.4 g/dL (3.5-5.2) 11/03/24 18:13 Globulin 2.5 g/dL (1.3-4.6) 11/03/24 18:13 All radiology interpretation(s) finalized by discharge EKG Data EKG 1: I personally reviewed and interpreted this EKG as follows: EKG interpretation date: 11/03/24 EKG interpretation time: 18:03 Interpretation: nsr hr [address] elevation qrs 94 qtc 432 Discharge Plan Discharge Patient Disposition: Home Clinical Impression: Syncope Condition: Stable Prescriptions: No Action hydralazine 50 mg tablet 50 mg PO BID Qty: 180 0RF metoprolol succinate 100 mg tablet extended release 24 hr See Rx Instructions .ROUTE .COMPLEX Qty: 90 1RF Dose Instruction: TAKE 1 TABLET BY MOUTH DAILY Rx Instructions: TAKE 1 TABLET BY MOUTH DAILY atorvastatin 20 mg tablet 20 mg PO DAILY Qty: 90 3RF hydrochlorothiazide 25 mg tablet See Rx Instructions .ROUTE .COMPLEX Qty: 90 0RF Dose Instruction: TAKE 1 TABLET BY MOUTH EVERY DAY Rx Instructions: TAKE 1 TABLET BY MOUTH EVERY DAY Discharge Orders: Discharge ED (Routine); Ordered 11/03/24 Ordered By: Tremayne Childress Referrals: Megan Pina MD [Primary Care Provider] - Discharge Diet: Advance as tolerated Discharge Activity: Resume usual activity Patient Instructions: Syncope (ED) Print Language: Rwandan Coding Level of Care Code ED Natural Resources Engineer for Chg Alex NIH stroke score NIHSS Level Of Consciousness - 1a: 0 Level Of Consciousness Questions - 1b: Both Correct Level Of Consciousness Commands - 1c: Both Correct Best Gaze - 2: Normal Visual Dickey - 3: No Visual Loss Facial Palsy - 4: Normal Motor Arm Right - 5: No Drift Motor Arm Left - 5: No Drift Motor Leg Right - 6: No Drift Motor Leg Left - 6: No Drift Limb Ataxia - 7: Absent Sensory - 8: Normal Best Language - 9: No Aphasia Dysarthia - 10: Normal Extinction And Inattention - 11: 0 Score Total Score: 0
[2024-11-03 18:15] VITALS: BP 203/95; PULSE 71; RESP 16; O2SAT 94
[2024-11-03 18:18] LABS: Basophils % 0.6 %; Eosinophils # 0.2 10^3/uL (0.0-0.8); Eosinophils % 3.5 %; Hematocrit 40.1 % (36-47); Lymphocytes % 30.3 %; Mean Corpuscular HGB Conc 32.9 g/dL (30-55); Mean Corpuscular Hemoglobin 30.1 pg (27-33); Mean Corpuscular Volume 91.6 fl (85-98); Mean Platelet Volume 9.1 fL (7.4-10.4); Monocytes # 0.8 10^3/uL (0.2-0.9); Neutrophils # 3.48 10^3/uL (1.8-7.7); Neutrophils % 53.4 %; Nucleated Red Blood Cells % 0 %; Platelet Count 268 10^3/cmm (157-399); Red Blood Count 4.38 10^6/uL (3.85-5.65); Red Cell Distribution Width 13.5 % (12.1-15.1); White Blood Count 6.51 10^3/uL (3.29-11.43)
[2024-11-03 18:32] LABS: INR 0.88 (0.8-1.2)
[2024-11-03 18:46] LABS: Alanine Aminotransferase 17 U/L (0-33); Albumin Level 4.4 g/dL (3.5-5.2); Alkaline Phosphatase 57 U/L (35-105); Anion Gap 17.4 (5-19); Aspartate Amino Transferase 23 U/L (0-32); Blood Urea Nitrogen 12 mg/dL (8-23); Carbon Dioxide 24 mmol/L (22-29); Chloride 94 mmol/L (98-107); Creatinine Clr Calc Pharmacy 49.0777; Globulin 2.5 g/dL (1.3-4.6); Glucose 121 mg/dL (65-115); Osmolality Calculated 275 mOsm/kg (285-295); Potassium 3.4 mmol/L (3.5-5.1); Sodium 132 mmol/L (136-145); Total Bilirubin 0.2 mg/dL (0.15-1.2); Total Protein 6.9 g/dL (6.6-8.7)
[2024-11-03 18:56] VITALS: BP 180/85
[2024-11-03 19:36] VITALS: BP 183/96; PULSE 84; RESP 18; O2SAT 98
== END 2024-11-03 19:37 | disposition home or self-care (01) ==
PROVIDERS: Emergency Provider Emergency Medicine; PCP Family Medicine
DX: R55 Syncope and collapse (principal); I10 Essential (primary) hypertension
CPT/HCPCS: 70450; 71045; 80053; 85025; 85610; 93005; 99285

== ENCOUNTER → 2024-11-10 11:20 | Outpatient (BNVA) | payer MEDICARE, OTHER, SELFPAY | PROVIDERS: PCP Family Medicine; Visit Provider Nurse Practitioner Family | DX: D18.01 Hemangioma of skin and subcutaneous tissue (principal); L81.4 Other melanin hyperpigmentation; L57.8 Other skin changes due to chronic exposure to nonionizing radiation; X32.XXXA Exposure to sunlight, initial encounter; L57.0 Actinic keratosis; Z08 Encounter for follow-up examination after completed treatment for malignant neoplasm; Z85.828 Personal history of other malignant neoplasm of skin; L82.0 Inflamed seborrheic keratosis; L29.89 Other pruritus; R20.9 Unspecified disturbances of skin sensation; R20.8 Other disturbances of skin sensation; L53.8 Other specified erythematous conditions | CPT/HCPCS: 17000; 17110; 99213 ==

== ENCOUNTER → 2025-05-12 10:50 | Outpatient (BNVA) | payer MEDICARE, OTHER, SELFPAY | PROVIDERS: PCP Family Medicine; Visit Provider Nurse Practitioner Family | DX: L82.1 Other seborrheic keratosis (principal); L57.8 Other skin changes due to chronic exposure to nonionizing radiation; X32.XXXA Exposure to sunlight, initial encounter; L57.0 Actinic keratosis; L81.4 Other melanin hyperpigmentation; Z08 Encounter for follow-up examination after completed treatment for malignant neoplasm; Z85.828 Personal history of other malignant neoplasm of skin; D48.5 Neoplasm of uncertain behavior of skin | CPT/HCPCS: 11102; 99213 ==

== ENCOUNTER → 2025-05-23 10:10 | Outpatient (BNVA) | payer MEDICARE, OTHER, SELFPAY | PROVIDERS: PCP Family Medicine; Visit Provider Family Medicine | DX: E78.00 Pure hypercholesterolemia, unspecified (principal); I10 Essential (primary) hypertension | CPT/HCPCS: 80053; 80061 ==

== ENCOUNTER → 2025-06-06 13:02 | Outpatient (BNVA) | payer MEDICARE, OTHER, SELFPAY | PROVIDERS: PCP Family Medicine; Visit Provider Dermatology | DX: C44.321 Squamous cell carcinoma of skin of nose (principal) | CPT/HCPCS: 12052; 15260; 17311 ==

== ENCOUNTER → 2025-06-13 08:36 | Outpatient (BNVA) | payer MEDICARE, OTHER, SELFPAY | PROVIDERS: PCP Family Medicine; Visit Provider Dermatology | DX: C44.321 Squamous cell carcinoma of skin of nose (principal) | CPT/HCPCS: 99212 ==

== ENCOUNTER → 2025-06-17 08:43 | Outpatient (BNVA) | payer MEDICARE, OTHER, SELFPAY | PROVIDERS: PCP Family Medicine; Visit Provider Dermatology | DX: C44.321 Squamous cell carcinoma of skin of nose (principal) | CPT/HCPCS: 99212 ==

== ENCOUNTER → 2025-07-05 11:22 | Outpatient (BNVA) | payer MEDICARE, OTHER, SELFPAY | PROVIDERS: PCP Family Medicine; Visit Provider Dermatology | DX: Z48.817 Encounter for surgical aftercare following surgery on the skin and subcutaneous tissue (principal) | CPT/HCPCS: 99212 ==